=== PATIENT | male | born 1995 | race African-American/Black ===

== ENCOUNTER 2016-12-02 07:50 | Emergency (ER) | payer SELFPAY | END 2016-12-02 08:21 | disposition home or self-care (01) | LOC: MADERS 07:50 | DX: J20.9 Acute bronchitis, unspecified (principal); I10 Essential (primary) hypertension; Z91.14 Patient's other noncompliance with medication regimen | CPT/HCPCS: 99282 ==

== ENCOUNTER 2017-06-02 23:02 | Emergency (ER) | payer SELFPAY ==
[2017-06-02] MEDS ORDERED: Azithromycin 250 MG TAB ONE (23:33)
[2017-06-02] MEDS ORDERED: predniSONE 20 MG TAB ONE (23:34)
== END 2017-06-02 23:53 | disposition home or self-care (01) ==
LOC: MADERS 23:02
DX: J20.9 Acute bronchitis, unspecified (principal); I10 Essential (primary) hypertension
CPT/HCPCS: J7506; J7620

== ENCOUNTER 2017-12-27 11:58 | Emergency (ER) | payer SELFPAY ==
[2017-12-27] MEDS ORDERED: Oxymetazoline HCl 0.05% ( 15 ML ) ONE (14:02)
== END 2017-12-27 14:00 | disposition home or self-care (01) ==
LOC: MADERS 11:58
DX: J20.9 Acute bronchitis, unspecified (principal); I10 Essential (primary) hypertension; F17.210 Nicotine dependence, cigarettes, uncomplicated
CPT/HCPCS: 99283

== ENCOUNTER 2018-03-01 17:27 | Emergency (ER) | payer SELFPAY ==
[2018-03-01] MEDS ORDERED: Ondansetron ODT 4 MG TAB ONE (17:39)
[2018-03-01] MEDS ORDERED: Amoxicillin/Potassium Clav 875 MG TAB ONE (17:44)
== END 2018-03-01 17:57 | disposition home or self-care (01) ==
LOC: MADERS 17:27
DX: J20.9 Acute bronchitis, unspecified (principal); I10 Essential (primary) hypertension; Z79.82 Long term (current) use of aspirin; Z79.899 Other long term (current) drug therapy; Z87.891 Personal history of nicotine dependence
CPT/HCPCS: 99283; Q0162

== ENCOUNTER 2018-08-11 10:18 | Emergency (ER) | payer SELFPAY | END 2018-08-11 11:04 | disposition home or self-care (01) | LOC: MADERS 10:18 | DX: K52.9 Noninfective gastroenteritis and colitis, unspecified (principal); I10 Essential (primary) hypertension; Z87.891 Personal history of nicotine dependence ==

== ENCOUNTER 2019-03-17 08:43 | Emergency (ER) | payer SELFPAY | END 2019-03-17 09:28 | disposition home or self-care (01) | LOC: MADERS 08:43 | DX: J20.9 Acute bronchitis, unspecified (principal) | CPT/HCPCS: 99283 ==

== ENCOUNTER 2019-06-20 08:20 | Emergency (ER) | payer OTHER, SELFPAY | END 2019-06-20 09:20 | disposition home or self-care (01) | LOC: MADERS 08:20 | DX: J06.9 Acute upper respiratory infection, unspecified (principal); I10 Essential (primary) hypertension; J45.909 Unspecified asthma, uncomplicated | CPT/HCPCS: 99283; J7620 ==

== ENCOUNTER 2019-07-31 08:41 | Emergency (ER) | payer OTHER, SELFPAY ==
[2019-07-31] MEDS ORDERED: Ibuprofen 800 MG TAB ONE (09:05)
--- NOTE | 2019-07-31 09:21 | RAD ---
XR Chest Pa Lat STANDARD HISTORY: Cough COMPARISON: None FINDINGS: The heart size is normal. The lungs are well expanded without focal areas of consolidation, pneumothorax or pleural effusions. There is nodular prominence in the right paratracheal region. Possibility of lymphadenopathy/mass can not be excluded. This should be evaluated with a CT scan on a nonemergent basis. IMPRESSION: No radiographic evidence of acute cardiopulmonary process. RECOMMENDATION: Further evaluation with CT scan of the chest is recommended on a nonemergent basis to evaluate the right paratracheal nodular prominence.
== END 2019-07-31 10:18 | disposition home or self-care (01) ==
LOC: MADERS 08:41
DX: J06.9 Acute upper respiratory infection, unspecified (principal); I10 Essential (primary) hypertension; J45.909 Unspecified asthma, uncomplicated; F17.210 Nicotine dependence, cigarettes, uncomplicated; Z79.51 Long term (current) use of inhaled steroids; Z71.6 Tobacco abuse counseling
CPT/HCPCS: 71046; 87804; 99406

== ENCOUNTER 2019-10-12 22:02 | Emergency (ER) | payer OTHER, SELFPAY ==
[2019-10-12] MEDS ORDERED: Dexamethasone 4 MG TAB ONE (22:26)
[2019-10-12] MEDS ORDERED: Ibuprofen 800 MG TAB ONE (22:26)
[2019-10-12] MEDS ORDERED: Acetaminophen 500 MG TAB ONE (22:26)
== END 2019-10-12 22:35 | disposition home or self-care (01) ==
LOC: MADERS 22:02
DX: J02.8 Acute pharyngitis due to other specified organisms (principal); B97.89 Other viral agents as the cause of diseases classified elsewhere; I10 Essential (primary) hypertension; F17.210 Nicotine dependence, cigarettes, uncomplicated
CPT/HCPCS: 99283; J8540

== ENCOUNTER 2020-07-28 13:43 | Emergency (ER) | payer OTHER | END 2020-07-28 14:45 | disposition home or self-care (01) | LOC: MADERS 13:43 | DX: L03.113 Cellulitis of right upper limb (principal); L03.115 Cellulitis of right lower limb; I10 Essential (primary) hypertension; J45.909 Unspecified asthma, uncomplicated; Z87.891 Personal history of nicotine dependence | CPT/HCPCS: 99283 ==

== ENCOUNTER 2022-10-06 21:05 | Emergency (ER) | payer SELFPAY ==
[2022-10-06] MEDS ORDERED: Ketorolac Tromethamine 30 MG/ML VIAL ONE (21:54)
[2022-10-06] MEDS ORDERED: Amoxicillin/Potassium Clav 875 MG TAB ONE (21:54)
== END 2022-10-06 22:07 | disposition home or self-care (01) ==
LOC: MADERS 21:05
DX: K02.9 Dental caries, unspecified (principal); I10 Essential (primary) hypertension; Z87.891 Personal history of nicotine dependence
CPT/HCPCS: 96372; 99282; J1885

== ENCOUNTER 2023-03-20 04:15 | Emergency (ER) | payer SELFPAY ==
[2023-03-20] MEDS ORDERED: Penicillin V Potassium 250 MG TAB ONE (05:22)
[2023-03-20] MEDS ORDERED: Naproxen 500 MG TAB ONE (05:22)
== END 2023-03-20 05:35 | disposition home or self-care (01) ==
LOC: MADERS 04:15
DX: K04.7 Periapical abscess without sinus (principal); L03.211 Cellulitis of face; I10 Essential (primary) hypertension
CPT/HCPCS: 99282

== ENCOUNTER 2023-06-20 15:22 | Emergency (ER) | payer OTHER ==
[2023-06-20] MEDS ORDERED: Bacitracin 1 PK ONE (15:35)
[2023-06-20] MEDS ORDERED: Lidocaine 1% (PF) 30 ML VIAL ONE (15:35)
== END 2023-06-20 16:20 | disposition home or self-care (01) ==
LOC: MADERS 15:22
DX: S61.411A Laceration without foreign body of right hand, initial encounter (principal); I10 Essential (primary) hypertension; Z87.891 Personal history of nicotine dependence; W23.1XXA Caught, crushed, jammed, or pinched between stationary objects, initial encounter
CPT/HCPCS: 12002; 99283; J2001

== ENCOUNTER 2023-06-21 06:25 | Emergency (ER) | payer OTHER | END 2023-06-21 07:00 | disposition home or self-care (01) | LOC: MADERS 06:25 | DX: Z48.00 Encounter for change or removal of nonsurgical wound dressing (principal) | CPT/HCPCS: 99281 ==

== ENCOUNTER 2023-07-03 17:33 | Emergency (ER) | payer OTHER | END 2023-07-03 18:03 | disposition home or self-care (01) | LOC: MADERS 17:33 | DX: S61.411D Laceration without foreign body of right hand, subsequent encounter (principal); I10 Essential (primary) hypertension; Z87.891 Personal history of nicotine dependence; W26.0XXD Contact with knife, subsequent encounter ==

== ENCOUNTER 2023-07-14 07:07 | Emergency (ER) | payer OTHER | END 2023-07-14 07:57 | disposition home or self-care (01) | LOC: MADERS 07:07 | DX: S61.411D Laceration without foreign body of right hand, subsequent encounter (principal); W26.9XXD Contact with unspecified sharp object(s), subsequent encounter; I10 Essential (primary) hypertension ==

== ENCOUNTER 2023-09-20 09:36 | Emergency (ER) | payer OTHER ==
[2023-09-20] MEDS ORDERED: Acetaminophen 500 MG TAB ONE (09:54)
== END 2023-09-20 10:02 | disposition home or self-care (01) ==
LOC: MADERS 09:36
DX: J20.9 Acute bronchitis, unspecified (principal); F41.9 Anxiety disorder, unspecified; F43.0 Acute stress reaction; I10 Essential (primary) hypertension; Z87.891 Personal history of nicotine dependence; Z79.899 Other long term (current) drug therapy
CPT/HCPCS: 99283

== ENCOUNTER 2024-06-29 22:34 | Emergency (ER) | payer OTHER | END 2024-06-29 22:55 | disposition home or self-care (01) | LOC: MADERS 22:34 | DX: S76.911A Strain of unspecified muscles, fascia and tendons at thigh level, right thigh, initial encounter (principal); I10 Essential (primary) hypertension; J45.909 Unspecified asthma, uncomplicated; X50.9XXA Other and unspecified overexertion or strenuous movements or postures, initial encounter; Y99.0 Civilian activity done for income or pay; Z87.891 Personal history of nicotine dependence | CPT/HCPCS: 99283 ==

== ENCOUNTER 2024-09-12 16:37 | Emergency (ER) | payer OTHER ==
[2024-09-12] MEDS ORDERED: Bacitracin 1 PK ONE (17:30)
[2024-09-12] MEDS ORDERED: Boostrix 0.5 ML (Tdap) VIAL (>/=7 yrs of age) ONE (17:31)
== END 2024-09-12 18:37 | disposition home or self-care (01) ==
LOC: MADERS 16:37
DX: S29.012A Strain of muscle and tendon of back wall of thorax, initial encounter (principal); S00.83XA Contusion of other part of head, initial encounter; R94.02 Abnormal brain scan; I10 Essential (primary) hypertension; V89.2XXA Person injured in unspecified motor-vehicle accident, traffic, initial encounter; Z87.891 Personal history of nicotine dependence; Z79.899 Other long term (current) drug therapy
CPT/HCPCS: 70450; 72125; 90471; 90715